=== PATIENT | male | born 1930 | race Caucasian/White ===

== ENCOUNTER 2016-09-03 14:28 | Emergency (ER) | payer MEDICARE, BC ==
[2016-01-10 12:55] VITALS: BMI 21.5
[~2016-09-03 14:28] MED LIST: CARTIA XT120 MG PO; CORDARONE200 MG PO; COREG6.25 MG PO; ECOTRIN325 MG PO; FERROUS SULFAT325 MG PO; FLOMAX0.4 MG PO; HEMOCYTE PLUS1 CAP PO; HYDROCODON-ACE1 EAC7 PO; K-DUR20 MEQ PO; LASIX20 MG PO; MOBIC7.5 MG PO; MOTRIN400 MG PO; PLAVIX75 MG PO; PRINIVIL10 MG PO; PROTONIX40 MG PO; TOPROL XL50 MG PO
[2016-09-03 15:45] LABS: BASOPHILS 0.4 % (0.0-2.0); EOSINOPHILS 1.6 % (0-7); HEMATOCRIT 37.4 % (42.0-54.0); HEMOGLOBIN 11.8 g/dL (13.5-17.5); IMMATURE GRANULOCYTES 0.2 % (0-5); LYMPHOCYTES 14.4 % (15-50); MCH 24.6 pg (26.0-34.0); MCHC 31.6 g/dL (31.0-37.0); MCV 78.1 fL (80.0-100.0); MEAN PLATELET VOLUME 9.7 fL (7.4-10.4); MONOCYTES 9.9 % (2-11); NEUTROPHILS 73.5 % (40-80); PLATELET COUNT 210 10x3/uL (130-400); RBC 4.79 10x6/uL (4.20-6.10); RDW 16.5 % (11.5-14.5); WBC 5.5 10x3/uL (4.8-10.8)
[2016-09-03 15:57] LABS: ALBUMIN 3.6 g/dL (3.4-5.0); ANION GAP 14.9 mmol/L (8-16); BILIRUBIN - TOTAL 0.43 mg/dL (0.2-1.3); CALCIUM 9.6 mg/dL (8.5-10.1); CARBON DIOXIDE 25.8 mmol/L (21.0-32.0); CREATININE - SERUM 1.3 mg/dL (0.6-1.3); POTASSIUM - SERUM 3.7 mmol/L (3.5-5.1); PROTEIN - SERUM 7.2 g/dL (6.4-8.2)
[2016-09-03 16:06] LABS: THYROID STIMULATING HORMONE 0.83 uIU/mL (0.36-3.74); TROPONIN-I 0.019 ng/mL (0.000-0.060)
== END 2016-09-03 17:42 | disposition home or self-care (01) ==
LOC: D.ER 14:28
PROVIDERS: Physician Assistant
DX: I48.91 Unspecified atrial fibrillation (principal); I25.10 Atherosclerotic heart disease of native coronary artery without angina pectoris; D64.9 Anemia, unspecified; I49.3 Ventricular premature depolarization; I45.4 Nonspecific intraventricular block

== ENCOUNTER 2017-10-11 02:31 | Observation (INO) | payer MEDICARE, BC ==
[~2017-10-11] VITALS: Ht 188 cm; Wt 85.7 kg
--- NOTE | ~2017-10-11 | HEMODYNAMI ---
PATIENT:AUSTIN KNIGHT MEDICAL RECORD: [id number] : 30 [address] [id number] ADMISSION DATE: 10/11/17 Generatedon:10/12/201710:03 Patient name: AUSTIN KNIGHT Patient #: [id number] SSN: : Date of study: 10/12/2017 Page: Of Hemodynamic Procedure Report Patient Data Patient Demographics Procedure consent was obtained First Name: AUSTIN Gender: Male Last Name: EUGENE : 1930 Middle Initial: L Age: 86 year(s) Patient #: [id number] Race: Additional ID: [id number] Contact details Address: [address] [place] [address] State: [place] City: [place] Zip code: [address] Admission Admission Data Admission Date: 10/11/2017 Admission Time: 3:32 Room #: 2115 Procedure Procedure Types Cath Procedure Diagnostic Procedure LHC LHC w/Coronaries w/Grafts Sedation Charges Moderate Sedation up to 30 minutes PCI Procedure AMI/SVG/SQUARE SHEAR OPERATOR PTCA or Stent SVG-BMS/TIP Initial Procedure Description Procedure Date Procedure Date: 10/12/2017 Procedure Start Time: 9:29 Procedure End Time: 10:01 Procedure Staff Name Function Josiah Harris MD Performing Physician Shanthi Martinez RT Monitor Jolene Yu RT Scrub Jackson Joaquin RN Nurse Procedure Data Cath Procedure Fluoroscopy Diagnostic fluoroscopy Total fluoroscopy Time: 8.1 time: 8.1 min min Diagnostic fluoroscopy Total fluoroscopy dose: dose: 1108 mGy 1108 mGy Contrast Material Contrast Material Type Amount (ml) Isovue 300 158 Entry Location Entry Primary Successful Side Size Upsize 1 Upsize Entry Closure Mesa ccessful Closure Location (Fr) (Fr) 2 (Fr) Remarks Device Remarks Femoral Right 5 Fr 6 Fr 6 Fr Exoseal artery Mid-Length Short Estimated blood loss: 10 ml Diagnostic catheters Device Type Used For End Catheter Placement MULTIPACK JL 4.0 5Fr Procedure catheter DIAGNOSTIC JL 5 5Fr Procedure catheter ([id number]) MULTIPACK 3DRC 5Fr Procedure catheter DIAGNOSTIC AR 1 MOD 5Fr Procedure catheter ([id number]) MULTIPACK Pigtail 5 Fr Ventriculography catheter Procedure Complications No complications Procedure Medications Medication Administration Route Dosage Oxygen etCO2 Nasal cannula 2 l/min Heparin Flush Bag added to field 2 bags (1000units/500ml NS) 0.9% NaCl I.V. 100 ml/hr Fentanyl I.V. 50 mcg Versed I.V. 1 mg Fentanyl I.V. 50 mcg Versed I.V. 1 mg Heparin Bolus I.V. 4000 units Integrilin (Bolus I.V. 7.9 ml 2mg/ml) Integrilin (Bolus wasted 2.1 ml 2mg/ml) Plavix P.O. 75 mg Hemodynamics Rest Heart Rate: 77 (bpm) Pressure Samples Time Site Value (mmHg) Purpose Heart Use Rate(bpm) 9:41 LV 122/10,15 Snapshot 74 9:41 AO 129/62(92) Pullback 75 9:41 LV 115/15,17 Pullback 75 Gradients Valve Time Site 1 Site 2 Mean SEP/DFP Peak To Heart Use (mmHg) (sec/min) Peak Rate (mmHg) (bpm) Aortic 9:41 LV AO 0 75 115/15,17 129/62(92) Calculations Valve P-P Mean Valve Index Valve Source Name Gradient Area Flow (cm2) Aortic 0 0 Snapshots Pre Cath Intra NCS Post Cath Vital Signs Time Heart Resp SPO2 etCO2 NIBP (mmHg) Rhythm Pain Sedation Rate (ipm) (%) (mmHg) Status Level (bpm) 9:08:07 81 16 97 0 151/78(125) NSR 0 (11) 10(A) , No pain 9:12:29 74 16 100 23.1 143/68(121) NSR 0 (11) 10(A) , No pain 9:16:43 73 19 100 0 138/84(112) NSR 0 (11) 10(A) , No pain 9:20:57 73 16 96 0 143/78(113) NSR 0 (11) 10(A) , No pain 9:25:13 69 16 98 0 137/73(102) NSR 0 (11) 9(A) , No pain 9:29:32 77 17 100 19.4 139/64(99) NSR 0 (11) 9(A) , No pain 9:33:47 73 14 90 29.1 133/73(107) NSR 0 (11) 9(A) , No pain 9:38:02 73 17 91 0 132/70(109) NSR 0 (11) 9(A) , No pain 9:42:16 76 17 94 0 125/71(95) NSR 0 (11) 9(A) , No pain 9:46:28 75 16 95 31.4 130/69(103) NSR 0 (11) 9(A) , No pain 9:50:44 75 23 100 32.1 142/65(110) NSR 0 (11) 9(A) , No pain 9:54:58 75 16 100 31.3 134/81(96) NSR 0 (11) 9(A) , No pain 9:59:11 70 18 100 0 128/74(97) NSR 0 (11) 10(A) , No pain Medications Time Medication Route Dose Verified Delivered Reason Notes Effectiveness by by 9:07:27 Oxygen etCO2 2 Josiah Paz Per physician Nasal l/min St Jose Joaquin RN cannula 9:07:38 Heparin Flush added 2 Josiah Paz used for Bag to bags St Jose Joaquin RN procedure (1000units/500ml field HARRISON NS) 9:07:48 0.9% NaCl I.V. 100 Josiah Paz Per physician ml/hr St Jose Joaquin RN, MD 9:20:10 Fentanyl I.V. 50 Josiah Paz for sedation mcg St Jose Joaquin RN, MD 9:20:16 Versed I.V. 1 mg Josiah Paz for sedation St Jose Joaquin RN, MD 9:28:42 Fentanyl I.V. 50 Josiah Paz for sedation mcg [facility] Jose Joaquin RN, MD 9:28:47 Versed I.V. 1 mg Josiah Paz for sedation St Jose Joaquin RN, MD 9:44:50 Heparin Bolus I.V. 4000 [address]iah Paz for units [facility] Jose Joaquin RN anticoagulation 9:46:24 Integrilin I.V. 7.9 Josiah Paz for (Bolus 2mg/ml) ml St Jose Joaquin RN antiplatelet MD therapy 9:46:33 Integrilin wasted 2.1 Josiah Paz for (Bolus 2mg/ml) ml St Jose Joaquin RN antiplatelet MD therapy 10:00:31 Plavix P.O. 75 mg Josiah Paz for St Jose Joaquin RN antiplatelet MD therapy Procedure Log Time Note 8:05:37 Diagnostic Cath Status : Elective 8:06:13 Time tracking: Regular hours (M-F 7:00 - 5:00) 8:06:18 Plan of Care:Hemodynamics will remain stable., Cardiac rhythm will remain stable., Comfort level will be maintained., Respiratory function will remain adequate., Patient/ family verbilizes understanding of procedure., Procedure tolerated without complication., Recovers from procedure without complications.. 8:50:12 Jackson Joaquin RN sent for patient. Start room use. 9:06:58 Vital chart was started 9:07:12 Patient received from [employer] II to [facility] 2 Alert and oriented. Tansferred to table in Supine position. 9:07:14 Warm blankets applied, and silvio hugger turned on for patient comfort. 9:07:14 Correct patient and procedure confirmed by team. 9:07:15 ECG and BP/O2 sat monitors applied to patient. 9:07:17 Signed procedure consent form obtained from patient. 9:07:20 Baseline sample Acquired. 9:07:25 Rhythm: sinus rhythm 9:07:27 Oxygen 2 l/min etCO2 Nasal cannula was administered by Jackson Joaquin RN; Per physician; 9:07:27 Full Disclosure recording started 9:07:30 H&P Date Dictated: 10/12/2017 New H&P dictated by physician.. 9:07:31 Pre-procedure instructions explained to patient. 9:07:31 Pre-op teaching completed and patient verbalized understanding. 9:07:33 Family in waiting room. 9:07:34 Patient NPO since Midnight. 9:07:36 Is the patient allergic to Iodine/contrast media? No. 9:07:37 Was the patient premedicated? No 9:07:38 Heparin Flush Bag (1000units/500ml NS) 2 bags added to field was administered by Jackson Joaquin RN; used for procedure; 9:07:44 Is patient on blood thinner?Yes 9:07:48 0.9% NaCl 100 ml/hr I.V. was administered by Jackson Joaquin RN; Per physician; 9:07:48 ACC The patient was administered the following blood thiners within the last 24 hours: ACCPlavix, Eliquis 9:07:51 Patient diabetic? No. 9:07:54 Previous problem with sedation/anesthesia? No ? 9:07:55 Snore? Yes 9:07:56 Sleep apnea? No 9:07:57 Deviated septum? No 9:07:57 Opens mouth fully? Yes 9:07:58 Sticks out tongue? Yes 9:08:00 Airway obstruction? No ? 9:08:06 Dentures? Yes in tight 9:08:10 Pre procedure: right dorsailis pedis pulse 2+ Normal; easily identifiable; not easily obliterated 9:08:13 Pre procedure: left dorsailis pedis pulse 2+ Normal; easily identifiable; not easily obliterated 9:08:15 Patient pain scale 0/10 ?. 9:08:22 IV patent on arrival in right forearm with 0.9% NaCl at O. 9:08:25 Lab results completed and on chart. 9:08:29 Right groin area was prepped with chlora-prep and draped in sterile fashion 9:08:30 Alarms reviewed by R. N. 9:08:30 Sharps counted by scrub and verified by R.N. 9:13:10 Physician paged 9:14:20 Physician arrived 9:18:01 --------ALL STOP TIME OUT------ 9:18:02 Final Timeout: patient, procedure, and site verified with staff and physician. All members of the team are in agreement. 9:18:04 Right groin site verified by team. 9:18:08 Physical assessment completed. ASA score P 2 - A patient with mild systemic disease as per Josiah Harris MD. 9:18:12 Sedation plan: IV Moderate Sedation Medication:Versed, Fentanyl 9:19:42 Zero performed for pressure channel P1 9::45 Zero performed for pressure channel P1 9:20:10 Fentanyl 50 mcg I.V. was administered by Jackson Joaquin RN; for sedation; 9::11 Zero performed for pressure channel P1 9:20:16 Versed 1 mg I.V. was administered by Jackson Joaquin RN; for sedation; 9::42 Fentanyl 50 mcg I.V. was administered by Jackson Joaquin RN; for sedation; 9:28:45 Procedure started. 9:28:47 Versed 1 mg I.V. was administered by Jackson Joaquin RN; for sedation; 9:28:53 Use device set Femoral Dx 9:28:55 ACIST Syringe (65855) opened to sterile field. 9:28:55 Bag Decanter (2002) opened to sterile field. 9:28:56 Medline Cath Pack ([id number]) opened to sterile field. 9:28:56 DIAGNOSTIC WIRE .035 260cm J wire (083821) opened to sterile field. 9:28:58 ACIST Hand Control (49136) opened to sterile field. 9:28:58 ACIST Manifold (43118) opened to sterile field. 9:28:59 DIAGNOSTIC Multipack 5Fr catheter set (WI1952) opened to sterile field. 9:28:59 Tegaderm 4 x 4 (1626W) opened to sterile field. 9:29:19 PERCUTANEOUS ENTRY 19GA needle opened to sterile field. 9:29:27 SHEATH Prelude 5Fr 0.035 (BGB-1W-69-035) opened to sterile field. 9:29:37 Local anesthetic to right femoral artery with Lidocaine 2% by Josiah Harris MD.INITIAL ACCESS ONLY 9:31:27 A 5 Fr sheath was inserted into the Right Femoral artery 9:31:52 A MULTIPACK JL 4.0 5Fr catheter was advanced over the wire and used for Procedure. 9:32:23 Cath removed unable to acess LCA. Exchanged for JL5 9:32:40 A DIAGNOSTIC JL 5 5Fr catheter ([id number]) was advanced over the wire and used for Procedure. 9:34:41 LCA angiography performed. 9:35:59 Catheter removed. 9:36:11 A MULTIPACK 3DRC 5Fr catheter was advanced over the wire and used for Procedure. 9:36:15 RCA angiography performed. 9:36:20 SVG to Circ angiography performed. 9:36:47 DEWITT to LAD angiography performed. 9:39:31 A DIAGNOSTIC AR 1 MOD 5Fr catheter ([id number]) was advanced over the wire and used for Procedure. 9:39:50 SVG to RCA angiography performed. 9:39:53 Catheter removed. 9:41:01 A MULTIPACK Pigtail 5 Fr catheter was advanced over the wire and used for Ventriculography. 9:41:34 EF : 30 % 9:42:36 Proceeding to intervention. 9:42:52 Sheath upsized to a 6 Fr Mid-Length. 9:43:22 SHEATH Prelude 6Fr 0.035 (TAH-0P-55-035) opened to sterile field. 9:43:23 WHISPER 300cm guide wire ([id number]) opened to sterile field. 9:43:24 SHEATH 6FR ARROW 45cm (CL-35525) opened to sterile field. 9:43:25 INFLATOR Merit BasixCompak (FT8422) opened to sterile field. 9:43:59 GUIDE 6FR LCB catheter (LA6LCB) opened to sterile field. 9:44:12 6 Fr LCB guide catheter was inserted over the wire 9:44:16 Whisper wire advanced. 9:44:23 Wire advanced across lesion. 9:44:50 Heparin Bolus 4000 units I.V. was administered by Jackson Joaquin RN; for anticoagulation; 9:46:24 Integrilin (Bolus 2mg/ml) 7.9 ml I.V. was administered by Jackson Joaquin RN; for antiplatelet therapy; 9:46:33 Integrilin (Bolus 2mg/ml) 2.1 ml wasted was administered by Jackson Joaquin RN; for antiplatelet therapy; 9:49:00 Inflate balloon Inflation number: 1 A EMERGE OTW 3.0 x 15 balloon ([id number]) was prepped and advanced across the Aorta Left -> 1st Ob Randa, then inflated to 12 RANCHO for 0:37 (min:sec). 9:49:48 Inflation number: 2 The EMERGE OTW 3.0 x 15 balloon ([id number]) was reinflated across the Aorta Left -> 1st Ob Randa, to 12 RANCHO for 0:35 (min:sec). 9:50:37 Balloon removed over the wire. 9:53:39 The INTEGRITY OTW 3.0 X 15 stent ([id number]) was advanced then removed because device failure 9:54:28 EXOSEAL 6Fr (EX600) opened to sterile field. 9:56:16 Place stent Inflation Number: 4 A INTEGRITY OTW 3.0 X 15 stent ([id number]) was prepped and advanced across the Aorta Left -> 1st Ob Randa. The stent was deployed at 14 RANCHO for 0:26 (min:sec). 9:57:33 Wire removed. 9:57:33 Guide catheter removed. 9:58:01 Sheath upsized to a 6 Fr Short. 9:58:18 Sheath removed intact; hemostasis achieved with Exoseal to the Right Femoral artery. 9:58:21 Procedure ended.(Physican Out) 9:58:39 Fluoroscopy time 08.10 minutes. 9:58:43 Flurop Dose total: 1108 9:58:43 Fluoroscopy dose: 1108 mGy 9:58:48 Contrast amount:Isovue 300 158ml. 9:58:51 Insertion/operative site no bleeding no hematoma. 9:58:56 Post-op/insertion site Right Femoral artery dressed using a 4 x 4 and Tegaderm. 9:58:59 Post right femoral artery:stable 9:59:04 Post-procedure physical assessment completed. ASA score P 2 - A patient with mild systemic disease as per Josiah Harris MD. 9:59:09 Post procedure rhythm: unchanged. 9:59:12 Estimated blood loss: 10 ml 9:59:13 Post procedure instruction explained to patient.Patient verbalizes understanding. 9:59:46 Procedure type changed to Cath procedure, Diagnostic procedure, LHC, LHC w/Coronaries w/Grafts, Sedation Charges, Moderate Sedation up to 30 minutes, PCI procedure, AMI/SVG/SQUARE SHEAR OPERATOR PTCA or Stent, SVG-BMS/TIP Initial 9:59:48 Procedure and supply charges have been captured, reviewed, submitted and are correct. 10:00:31 Plavix 75 mg P.O. was administered by Jackson Joaquin RN; for antiplatelet therapy; 10:01:37 Procedure Complication : No complications 10:01:41 Vital chart was stopped 10:01:43 See physician's report for complete and final results. 10:01:45 Report given to Pre/Post Procedure Room. 10:01:52 Patient transfered to Pre/Post Procedure Room with Stretcher. 10:01:54 Procedure ended. 10:01:54 Full Disclosure recording stopped 10:01:58 End room use (Document Last) Intervention Summary Intervention Notes Time ActionType Lesion and Equipment Action# Pressure Duration Attributes Used 9:49:00 Inflate Aorta Left EMERGE OTW 1 12 00:37 balloon -> 1st Ob 3.0 x 15 Randa balloon ([id number]) 9:49:48 Reinflate Aorta Left EMERGE OTW 2 12 00:35 balloon -> 1st Ob 3.0 x 15 Randa balloon ([id number]) 9:53:39 Discard Aorta Left INTEGRITY Stent -> 1st Ob OTW 3.0 X 15 Randa stent ([id number]) 9:56:16 Place stent Aorta Left INTEGRITY 4 14 00:26 -> 1st Ob OTW 3.0 X 15 Randa stent ([id number]) Device Usage Item Name Manufacture Quantity Catalog Number Hospital Part Current Minimal Lot# / Charge Number Stock Stock Serial# Code ACIST Syringe Acist 1 54729 257089 951904 483696 20 (84365) Medical Systems TruQu Bag Decanter Microtek 1 2001S 102206 56319 311588 5 () Medical Inc. Medline Cath Cardinal 1 [id number] 081576 79954 375599 5 [employer] ([id number]) DIAGNOSTIC WIRE St [place] 1 470216 246305 988854 374350 30 .035 260cm J wire (057531) ACIST Hand Acist 1 82215 904062 137414 445019 5 Control (10564) Medical Systems Inc ACIST Manifold Acist 1 17004 528533 019643 093655 5 (94693) Medical Systems Inc DIAGNOSTIC Cardinal 1 NT7648 739898 40917 953749 30 Multipack 5Fr Health catheter set (MO7587) Tegaderm 4 x 4 3M 1 1626W 681599 035611 449107 5 (1626W) PERCUTANEOUS Your[employer]core Medical 1 A57751 385440 033142 5 ENTRY 19GA needle SHEATH Prelude Merit 1 QYP-2X-90-035 767294 645869 447555 5 5Fr 0.035 Medical (VCS-7N-71-035) MULTIPACK JL Cardinal 1 326659 5 4.0 5Fr Health catheter DIAGNOSTIC JL 5 Cardinal 1 [id number] 900242 533743 272400 5 5Fr catheter Health (264714X) MULTIPACK 3DRC Cardinal 1 935029 5 5Fr catheter Health DIAGNOSTIC AR 1 Cardinal 1 [id number] 172593 636368 588704 15 MOD 5Fr Health catheter (625057C) MULTIPACK Cardinal 1 833426 5 Pigtail 5 Fr Health catheter SHEATH Prelude Merit 1 PQL-4O-49-35 241290 1820449 680258 5 6Fr 0.035 Medical (GLZ-8T-29-035) WHISPER 300cm Farr 1 [id number] 609665 995065 144408 5 guide wire Vascular ([id number]) SHEATH 6FR Teleflex 1 CL-07238 867960 909857 111757 5 ARROW 45cm (CL-09183) INFLATOR Merit Merit 1 RX3454 678150 339321 590280 15 [facility] Medical (XM6992) GUIDE 6FR LCB Medtronic 1 LA6LCB 973837 03673 821510 1 catheter (LA6LCB) EMERGE OTW 3.0 [place] 1 [id number] 651925 957392 798659 5 [id number] x 15 balloon Scientific ([id number]) INTEGRITY OTW Medtronic 2 [id number] 900747 564717 7 [id number] 3.0 X 15 stent [id number] ([id number]) EXOSEAL 6Fr Cardinal 1 EX600 367022 426072 752132 10 (EX600) Health Signature Audit [place] Stage Time Signature Unsigned Intra-Procedure 10/12/2017 Shanthi Martinez 10:03:07 AM RT(R) Signatures Monitor : Shanthi Martinez Signature : RT Date : Time : [id number] [place] [address]
--- NOTE | ~2017-10-11 | CN ---
PATIENT NAME:AUSTIN KNIGHT MEDICAL RECORD: [id number] : 30 LOCATION:D. D.2115 ADMIT DATE: 10/11/17 ACCOUNT: [id number] CONSULTING PHYSICIAN: LYNNETTE GIL MD REFERRING PHYSICIAN: GREG ROSEN MD DATE OF CONSULTATION: 10/11/2017 HISTORY OF PRESENT ILLNESS: An 86-year-old gentleman with known history of coronary artery disease, status post coronary artery bypass grafting, history of stent to the circumflex graft in the past, admitted with chest tightness, pressure, reminiscent of previous angina. Cardiac enzymes subsequently consistent with NSTEMI. We are asked to see him concerning his cardiovascular status. PAST MEDICAL HISTORY: Includes; 1. History of most recently with herniorrhaphy, status post repair. 2. Hypertension. 3. Hyperlipidemia. ALLERGIES: None known. MEDICATIONS: Include potassium 10 mg p.o. daily, Lasix 40 daily, diltiazem 120 daily, carvedilol 6.25 b.i.d., and Eliquis 2.5 b.i.d. SOCIAL HISTORY: He is a nonsmoker, nondrinker. Does attempt to exercise on a regular basis, 3 days a week. REVIEW OF SYSTEMS: The patient reports easy bruising but reports no swollen glands. The patient reports no fever, no night sweats, no significant weight gain, no significant weight loss. No significant exercise tolerance. The patient reports no dry eyes, no irritation, no vision change. Patient reports no difficulty hearing and no ear pain. Patient reports no frequent nose bleeds or nose and sinus problems. Patient reports on arm pain on exertion. No shortness of breath while lying down. No history of heart murmur. Patient reports no cough, no wheezing or coughing up blood. Patient reports no abdominal pain, no vomiting. Normal appetite. No diarrhea and not vomiting blood. No nausea and no constipation. Patient reports no incontinence. No difficulty urinating. No hematuria. No increased frequency. Patient reports no muscle aches. No weakness, no arthralgias, no back pain. No swelling of the extremities. Patient reports no abnormal mole, no jaundice, no rashes. Reports no loss of consciousness. No weakness and no numbness. No seizures, dizziness, or headaches. The patient reports no depression, no sleep disturbance, feeling safe in a relationship and no alcohol abuse. Patient reports on fatigue. Reports no runny nose or sinus pressure. No itching, no hives, and no frequent sneezing. PHYSICAL EXAMINATION: GENERAL: Pleasant gentleman, no acute distress, appears stated age. VITAL SIGNS: Blood pressure 147/73, pulse 70 and regular. HEENT: Normocephalic, atraumatic. NECK: No JVD or bruit. HEART: Regular, II/ systolic ejection murmur. LUNGS: Good air excursion. ABDOMEN: Soft, nontender. EXTREMITIES: Right lower extremity good pulses. No edema. Left prosthesis in CONSULT REPORT [id number] AUSTIN KNIGHT. NEUROLOGIC: Grossly intact. DIAGNOSTIC DATA: ECG shows nonspecific ST-T changes. IMPRESSION: Acute coronary syndrome, awm-WU-idqorkyjl myocardial infarction. We will hold Eliquis in anticipation of diagnostic angiography and load Plavix. Further recommendations based on clinical course. TRANSINT:[id number] Voice Confirmation ID: [id number] DOCUMENT ID: [id number] LYNNETTE GIL MD at 1132 CC: [id number] DICTATION DATE: 10/11/17 1051 SUPERVISOR COMPOUNDING AND FINISHING: 10/11/17 1147 ADM IN [facility] [address] [place] [address]
--- NOTE | ~2017-10-11 | OP ---
PATIENT NAME: AUSTIN KNIGHT MEDICAL RECORD: [id number] :30 LOCATION:D.M2 D.2115 ADMISSION DATE:10/11/17 SURGEON: LYNNETTE GIL MD DATE OF OPERATION: 10/12/2017 PROCEDURE: Left heart catheterization, selective coronary angiography plus PTCA stent report, right femoral artery approach. CATHETERS: A 5-Albanian sheath, 5/4 left and right Sally. Please note we did use a long sheath for intervention secondary to marked tortuosity of the iliacs. FINDINGS: Left ventriculography in 30-degree LYON view shows anterior apical, apical and inferoapical hypokinesis. Overall, LV function is reduced at 30%. CORONARY ANATOMY: LEFT MAIN: Left main is free of disease. LAD: LAD is free of disease. Fills for a short period of time and is totally occluded. CIRCUMFLEX: Circumflex system again is totally occluded at takeoff of a large marginal branch. RIGHT CORONARY ARTERY: Proximal stenosis of 90% and totally occluded at the mid portion. BYPASS GRAFTS: DEWITT to LAD is widely patent throughout its course with no evidence of post-anastomotic stenosis. Saphenous vein graft to the right, widely patent throughout its course. No evidence of post-anastomotic stenosis. Saphenous graft to the circumflex, lateral system. This shows a tight 90+ percent stenosis in its vein graft portion. PLAN: Intervention momentarily. DESCRIPTION OF PROCEDURE: Using a long 6 sheath, JR guiding catheter provided good guide catheter support followed 300 cm Whisper wire placed across the tightly occluded 90% saphenous vein graft stenosis at distal portion of vessel. Pre-deployment balloon used was a 3.0 x 12 Rogers balloon up to 10 atmospheres. Stent deployed was a 3.0 x 15 mm Integrity nondrug-eluting stent up to 14 atmospheres. Final angiography shows excellent resolution of 90+ percent stenosis, no significant residual. DAVID flow was 3 throughout the procedure. The patient had been previously loaded with Plavix. Heparin was given the lab. Sheath closed with ExoSeal device. TRANSINT:[id number] Voice Confirmation ID: [id number] DOCUMENT ID: [id number] LYNNETTE GIL MD at 1337 CC: [id number] DICTATION DATE: 10/12/17 1007 BELLOWS CHARGER ASSEMBLER: 10/12/17 1213 DIS IN 10/12/17 [facility] [address] [place] [address]
[2017-10-11 02:52] LABS: BASOPHILS 0.3 % (0-2); EOSINOPHILS 2.1 % (0-7); HEMATOCRIT 35.2 % (42.0-54.0); HEMOGLOBIN 10.8 g/dL (13.5-17.5); IMMATURE GRANULOCYTES 0.1 % (0-5); LYMPHOCYTES 14.2 % (15-50); MCH 23.8 pg (26.0-34.0); MCHC 30.7 g/dL (31.0-37.0); MCV 77.5 fL (80.0-100.0); MEAN PLATELET VOLUME 8.7 fL (7.4-10.4); MONOCYTES 7.7 % (2-11); NEUTROPHILS 75.6 % (40-80); PLATELET COUNT 201 10x3/uL (130-400); RBC 4.54 10x6/uL (4.20-6.10); RDW 16.6 % (11.5-14.5); WBC 6.8 10x3/uL (4.8-10.8)
[2017-10-11 03:45] LABS: ALBUMIN 3.1 g/dL (3.4-5.0); ALKALINE PHOSPHATASE 117 U/L (46-116); ALT (SGPT) 13 U/L (10-68); BILIRUBIN - TOTAL 0.29 mg/dL (0.2-1.3); CALC OSMOLALITY 288 mosm/kg (275-300); CALCIUM 8.9 mg/dL (8.5-10.1); CARBON DIOXIDE 26.1 mmol/L (21.0-32.0); CHLORIDE - SERUM 107 mmol/L (98-107); CREATININE - SERUM 1.4 mg/dL (0.6-1.3); GLUCOSE 148 mg/dL (74-106); POTASSIUM - SERUM 3.9 mmol/L (3.5-5.1); PROTEIN - SERUM 6.5 g/dL (6.4-8.2); SODIUM 142 mmol/L (136-145); UREA NITROGEN 21 mg/dL (7-18); eGFR NON AFRICAN AMERICAN 51 mL/min (90-120)
[2017-10-11 04:00] LABS: CHOL - HDL RATIO 5.1 ratio (2.3-4.9); CHOLESTEROL, TOTAL 174 mg/dL (0-200); CKMB 1.1 U/L (0.0-3.6); CREATINE KINASE 39 UL (21-232); HDL CHOLESTEROL 34 mg/dL (32-96); LDL CHOLESTEROL 122 mg/dL (0-100); LDL-HDL RATIO 3.6 ratio (1.5-3.5); TRIGLYCERIDE 92 mg/dL (30-200); TROPONIN-I 0.132 ng/mL (0.000-0.060)
[2017-10-11] MEDS ORDERED: ELIQUIS2.5 MG PO (04:50)
[2017-10-11 04:53] VITALS: BMI 25.1
[2017-10-11 05:22] VITALS: BP 124/62
[2017-10-11 09:04] VITALS: BP 147/73
[2017-10-11 10:05] LABS: BASOPHILS 0.3 % (0-2); EOSINOPHILS 1.4 % (0-7); HEMATOCRIT 37.1 % (42.0-54.0); HEMOGLOBIN 11.3 g/dL (13.5-17.5); IMMATURE GRANULOCYTES 0.1 % (0-5); LYMPHOCYTES 15.9 % (15-50); MCH 23.8 pg (26.0-34.0); MCHC 30.5 g/dL (31.0-37.0); MCV 78.1 fL (80.0-100.0); MEAN PLATELET VOLUME 9.3 fL (7.4-10.4); MONOCYTES 7.7 % (2-11); NEUTROPHILS 74.6 % (40-80); PLATELET COUNT 223 10x3/uL (130-400); RBC 4.75 10x6/uL (4.20-6.10); RDW 16.5 % (11.5-14.5); WBC 7.1 10x3/uL (4.8-10.8)
[2017-10-11 10:15] LABS: ANION GAP 12.3 mmol/L (8-16); CALCIUM 9.2 mg/dL (8.5-10.1); CARBON DIOXIDE 26.8 mmol/L (21.0-32.0); CREATININE - SERUM 1.2 mg/dL (0.6-1.3); POTASSIUM - SERUM 4.1 mmol/L (3.5-5.1)
[2017-10-11 11:35] VITALS: BP 135/77
[2017-10-11 18:08] LABS: BASOPHILS 0.2 % (0-2); EOSINOPHILS 1.7 % (0-7); HEMATOCRIT 39.4 % (42.0-54.0); HEMOGLOBIN 11.9 g/dL (13.5-17.5); IMMATURE GRANULOCYTES 0.1 % (0-5); LYMPHOCYTES 12.7 % (15-50); MCH 23.6 pg (26.0-34.0); MCHC 30.2 g/dL (31.0-37.0); MEAN PLATELET VOLUME 9.2 fL (7.4-10.4); MONOCYTES 7.2 % (2-11); NEUTROPHILS 78.1 % (40-80); PLATELET COUNT 236 10x3/uL (130-400); RBC 5.05 10x6/uL (4.20-6.10); RDW 16.7 % (11.5-14.5); WBC 8.8 10x3/uL (4.8-10.8)
[2017-10-11 18:27] LABS: ANION GAP 12.3 mmol/L (8-16); CALCIUM 9.4 mg/dL (8.5-10.1); CARBON DIOXIDE 26.7 mmol/L (21.0-32.0); CREATININE - SERUM 1.2 mg/dL (0.6-1.3)
[2017-10-11 20:00] VITALS: BP 145/67
[2017-10-11 23:58] VITALS: BP 107/73
[2017-10-12 04:00] VITALS: BP 142/72
[2017-10-12 08:48] VITALS: BP 141/59
[2017-10-12 12:23] VITALS: Ht 188 cm; Wt 85.7 kg
[2017-10-12] MEDS ORDERED: FERROUS SULFAT325 MG PO (13:55)
[2017-10-12] MEDS ORDERED: NITROQUICK0.4 MG SL (13:56)
[2017-10-12] MEDS ORDERED: PLAVIX75 MG PO (14:05)
== END 2017-10-12 15:54 | disposition home or self-care (01) ==
LOC: D.ER 02:31 → OBSVTIME 03:32 → D.M2 03:32
PROVIDERS: Emergency Medicine; Internal Medicine Interventional Cardiology
DX: I21.4 Non-ST elevation (NSTEMI) myocardial infarction (principal); I25.110 Atherosclerotic heart disease of native coronary artery with unstable angina pectoris; Z95.1 Presence of aortocoronary bypass graft; I10 Essential (primary) hypertension; E78.5 Hyperlipidemia, unspecified

== ENCOUNTER 2018-05-27 17:32 | Observation (INO) | payer MEDICARE, BC ==
[~2018-05-27] VITALS: Ht 188 cm; Wt 81.7 kg
--- NOTE | ~2018-05-27 | MORECARE ---
CASE MANAGEMENT DISCHARGE SUMMARY PATIENT: AUSTIN KNIGHT UNIT: [id number] ADM DATE: 05/27/18 AGE: 87 : 30 SEX: M ROOM/BED: D.2115 AUTHOR: CAYETANO BURNS PHYSICIAN: REFERRING PHYSICIAN: SANTOS SANTIAGO MD DATE OF SERVICE: 05/28/18 Discharge Plan Patient Name: AUSTIN KNIGHT Facility: [facility]:[place] : 1930 Planned Disposition: Home Anticipated Discharge Date: 05/28/18 Discharge Date: Expected LOS: 1 Initial Reviewer: [email or web address] Initial Review Date: 05/28/2018 Generated: 05/28/18 12:55 pm Patient Name: AUSTIN KNIGHT Page [phone] at 1156 All edits/amendments must be made on the electronic document DICTATION DATE: 05/28/18 1155 BEEHIVE KILN CHARCOAL BURNER: ALIYA 05/28/18 1155 RPT#: [id number] DC DATE: STATUS: ADM IN [facility] [address] [place] [address] END OF REPORT
--- NOTE | ~2018-05-27 | HEMODYNAMI ---
PATIENT:AUSTIN KNIGHT MEDICAL RECORD: [id number] : 30 LOCATION[facility] [id number] ADMISSION DATE: 05/27/18 Generatedon:05/28/20189:10 Patient name: AUSTIN KNIGHT Patient #: [id number] SSN: : Date of study: 05/28/2018 Page: Of Hemodynamic Procedure Report Patient Data Patient Demographics Procedure consent was obtained First Name: AUSTIN Gender: Male Last Name: EUGENE : 1930 Middle Initial: L Age: 87 year(s) Patient #: [id number] Race: Additional ID: [id number] Contact details Address: [address] [place] [address] State: [place] City: [place] Zip code: [address] Past Medical History Allergies: No known allergies Admission Admission Data Admission Date: 05/27/2018 Admission Time: 19:41 Room #: D2115 Lab Results Lab Result Date: 05/28/2018 Lab Result Time: 0:00 Biochemistry Name Units Result Min Max BUN mg/dl 15 --(--*-)-- 7 18 Creatinine mg/dl 1 --(--*-)-- 0.6 1.3 CBC Name Units Result Min Max Hemoglobin g/dl 14.1 --(*---)-- 13.5 17.5 Procedure Procedure Types Cath Procedure Diagnostic Procedure C [facility] w/Coronaries w/Grafts PCI Procedure Coronary Stent Coronary Stent Initial Procedure Description Procedure Date Procedure Date: 05/28/2018 Procedure Start Time: 8:49 Procedure End Time: 9:06 Procedure Staff Name Function Haja Perrin MD Performing Physician Marco Liz RT Monitor Heidi Ferreira RT Scrub Ilda Valadez RN Nurse Procedure Data Cath Procedure Fluoroscopy Diagnostic fluoroscopy Total fluoroscopy Time: 5 time: 5 min min Diagnostic fluoroscopy Total fluoroscopy dose: dose: 313.02 mGy 313.02 mGy Contrast Material Contrast Material Type Amount (ml) Isovue 300 73 Entry Location Entry Primary Successful Side Size Upsize Upsize Entry Closure Succes sful Closure Location (Fr) 1 (Fr) 2 (Fr) Remarks Device Remarks Femoral Right 5 Fr 6 Fr Exoseal artery Short Diagnostic catheters Device Type Used For End Catheter Placement MULTIPACK Pigtail 5 Fr LV Angiography catheter MULTIPACK JL 4.0 5Fr Left Coronary catheter Angiography MULTIPACK 3DRC 5Fr Right Coronary catheter Angiography DIAGNOSTIC AR MOD 5Fr SVG Angiography Catheter ([id number]) Procedure Complications No complications Procedure Medications Medication Administration Route Dosage Oxygen etCO2 Nasal cannula 2 l/min Lidocaine 2% added to field 20 Heparin Flush Bag added to field 2 bags (1000units/500ml NS) 0.9% NaCl I.V. 100 ml/hr Versed I.V. 1 mg Fentanyl I.V. 50 mcg Heparin Bolus I.V. 4000 units Versed I.V. 1 mg Fentanyl I.V. 50 mcg Plavix P.O. 75 mg Hemodynamics Rest HGB: 14.1 (g/dl) Heart Rate: 82 (bpm) Snapshots Pre Cath Intra NCS Post Cath Vital Signs Time Heart Resp SPO2 etCO2 NIBP (mmHg) Rhythm Pain Sedation Rate (ipm) (%) (mmHg) Status Level (bpm) 8:41:26 71 17 100 27.3 156/79(134) NSR 0 (11) 10(A) , No pain 8:45:48 73 16 100 29.6 141/79(117) NSR 0 (11) 10(A) , No pain 8:50:04 74 41 100 12.1 137/81(114) NSR 0 (11) 10(A) , No pain 8:55:07 74 14 100 0 136/75(112) NSR 0 (11) 9(A) , No pain 8:59:27 73 19 100 12.1 133/75(113) NSR 0 (11) 9(A) , No pain 9:03:43 73 22 100 30.3 133/76(116) NSR 0 (11) 10(A) , No pain Medications Time Medication Route Dose Verified Delivered Reason Notes Effectiveness by by 8:41:09 Oxygen etCO2 2 Haja Gonsales used for Nasal l/min Marychuy Valadez weir fisherman cannula 8:41:16 Lidocaine 2% added 20ml Haja Smyth for local to vial Marychuy Perrin MD anesthetic field 8:41:25 Heparin Flush added 2 Haja Smyth used for Bag to bags Marychuy Perrin MD procedure (1000units/500ml field NS) 8:41:34 0.9% NaCl I.V. 100 Hajamaxi Gonsales Per physician ml/hr Marychuy Valadez RN 8:48:40 Versed I.V. 1 mg Haja Avelinoie for sedation Marychuy Valadez RN 8:48:47 Fentanyl I.V. 50 Haja Buffie for sedation mcg Marychuy Valadez RN 8:53:47 Versed I.V. 1 mg Haja Buffie for sedation Marychuy Valadez RN 8:53:51 Fentanyl I.V. 50 Haja Youie for sedation mcg Marychuy Valadez RN 8:56:15 Heparin Bolus I.V. 4000 Haja Youie for verifi ed units Marychuy Valadez RN anticoagulation with dr perrin 9:04:12 Plavix P.O. 75 mg Haja Gonsales for Marychuy Valadez RN antiplatelet therapy Procedure Log Time Note 8:10:43 Signed procedure consent form obtained from patient. 8:10:44 Diagnostic Cath status Elective 8:10:46 Time tracking: Regular hours (M-F 7:00 - 5:00) 8:10:50 Plan of Care:Hemodynamics will remain stable., Cardiac rhythm will remain stable., Comfort level will be maintained., Respiratory function will remain adequate., Patient/ family verbilizes understanding of procedure., Procedure tolerated without complication., Recovers from procedure without complications.. 8:10:53 Ilda Valadez RN sent for patient. Start room use. 8:36:31 Patient received from Med II to CCL 3 Alert and oriented. Tansferred to table in Supine position. 8:36:31 Warm blankets applied, and silvio hugger turned on for patient comfort. 8:36:32 Correct patient and procedure confirmed by team. 8:36:33 ECG and BP/O2 sat monitors applied to patient. 8:40:13 Vital chart was started 8:40:17 Baseline sample Acquired. 8:40:21 Rhythm: sinus rhythm 8:40:23 Full Disclosure recording started 8:40:37 H&P Date Dictated: 05/28/2018 Within 30 days and on chart., H&P Addendum completed by physician on day of procedure. (MUST COMPLETE FOR ALL OUTPATIENTS). 8:40:38 Pre-procedure instructions explained to patient. 8:40:39 Pre-op teaching completed and patient verbalized understanding. 8:40:42 Family unavailable. 8:40:45 Patient NPO since Midnight. 8:40:52 Patient allergic to No known allergies 8:40:58 Is the patient allergic to Iodine/contrast media? No. 8:41:00 Is patient on blood thinner?Yes 8:41:04 ACC The patient was administered the following blood thiners within the last 24 hours: ACCPlavix 8:41:06 Patient diabetic? No. 8:41:08 ----Pre-sedation anethsthesia assessment.---- 8:41:09 Oxygen 2 l/min etCO2 Nasal cannula was administered by Ilda Valadez RN; used for procedure; 8:41:16 Lidocaine 2% 20ml vial added to field was administered by Haja Perrin MD; for local anesthetic; 8:41:17 Previous problem with sedation/anesthesia? No ? 8:41:19 Snore? No 8:41:20 Sleep apnea? No 8:41:23 Deviated septum? No 8:41:24 Opens mouth fully? Yes 8:41:25 Heparin Flush Bag (1000units/500ml NS) 2 bags added to field was administered by Haja Perrin MD; used for procedure; 8:41:26 Sticks out tongue? Yes 8:41:28 Airway obstruction? No ? 8:41:30 Dentures? No ? 8:41:33 Pre procedure: right dorsailis pedis pulse 2+ Normal; easily identifiable; not easily obliterated 8:41:34 0.9% NaCl 100 ml/hr I.V. was administered by Ilda Valadez RN; Per physician; 8:41:37 Patient pain scale 0/10 ?. 8:41:45 IV patent on arrival in left antecubital with 0.9% NaCl at 10ml/hr. 8:44:29 Lab Result : BUN 15 mg/dl 8:44:29 Lab Result : Creatinine 1 mg/dl 8:44:29 Lab Result : Hemoglobin 14.1 g/dl 8:46:12 Lab results completed and on chart. 8:46:16 Right groin area was prepped with chlora-prep and draped in sterile fashion 8:46:16 Alarms reviewed by R. N. 8:46:17 Sharps counted by scrub and verified by R.N. 8:46:18 Physician arrived 8:46:18 --------ALL STOP TIME OUT------ 8:46:20 Final Timeout: patient, procedure, and site verified with staff and physician. All members of the team are in agreement. 8:46:22 Right groin site verified by team. 8:46:25 Physical assessment completed. ASA score P 2 - A patient with mild systemic disease as per Haja Perrin MD. 8:46:28 Sedation plan: IV Moderate Sedation Medication:Versed, Fentanyl 8:46:31 Use device set Femoral Dx 8:46:32 ACIST Syringe (30972) opened to sterile field. 8:46:33 Bag Decanter (2002S) opened to sterile field. 8:46:34 Medline Cath Pack ([id number]) opened to sterile field. 8:46:34 DIAGNOSTIC WIRE .035 260cm J wire (197792) opened to sterile field. 8:46:36 ACIST Hand Control (62465) opened to sterile field. 8:46:36 ACIST Manifold (80587) opened to sterile field. 8:46:37 DIAGNOSTIC Multipack 5Fr catheter set (OY5746) opened to sterile field. 8:46:37 Tegaderm 4 x 4 (1626W) opened to sterile field. 8:46:39 EXOSEAL 5Fr (EX500) opened to sterile field. 8:46:40 SHEATH 5FR Belvedere Tiburon (MYS364) opened to sterile field. 8:48:40 Versed 1 mg I.V. was administered by Ilda Valadez RN; for sedation; 8:48:47 Fentanyl 50 mcg I.V. was administered by Ilda Valadez RN; for sedation; 8:49:16 Procedure started. 8:49:19 Local anesthetic to right femoral artery with Lidocaine 2% by Haja Perrin MD.INITIAL ACCESS ONLY 8:49:39 A 5 Fr sheath was inserted into the Right Femoral artery 8:50:15 A MULTIPACK Pigtail 5 Fr catheter was advanced over the wire and used for LV Angiography. 8:50:20 LV angiography performed. 8:50:21 LV gram done using LYON 8:50:28 EF : 20 % 8:50:31 Catheter exchanged over wire. 8:50:40 A MULTIPACK JL 4.0 5Fr catheter was advanced over the wire and used for Left Coronary Angiography. 8:50:43 LCA angiography performed. 8:51:05 Catheter removed. 8:51:27 A MULTIPACK 3DRC 5Fr catheter was advanced over the wire and used for Right Coronary Angiography. 8:52:51 DEWITT to LAD angiography performed. 8:53:17 A DIAGNOSTIC AR MOD 5Fr Catheter ([id number]) was advanced over the wire and used for SVG Angiography. 8:53:27 SVG to Circ angiography performed. 8:53:47 Versed 1 mg I.V. was administered by Ilda Valadez RN; for sedation; 8:53:51 Fentanyl 50 mcg I.V. was administered by Ilda Valadez RN; for sedation; 8:54:12 INFLATOR Merit BasixCompak (EZ0324) opened to sterile field. 8:54:13 CHOICE PT Extra Support 182cm wire ([id number]) opened to sterile field. 8:54:13 SHEATH 6FR Bel[place] (BXR334) opened to sterile field. 8:55:10 Catheter removed. 8:55:27 GUIDE 6FR AR 2.0 catheter ([id number]) opened to sterile field. 8:56:15 Heparin Bolus 4000 units I.V. was administered by Ilda Valadez RN; for anticoagulation; verified with dr perrin 8:56:29 Sheath upsized to a 6 Fr Short. 8:57:00 6 Fr AR 2 guide catheter was inserted over the wire 8:57:05 CPTES wire advanced. 8:58:31 Inflate balloon Inflation number: 1 A EUPHORA 2.5 x 15 Balloon ([id number]) was prepped and advanced across the Aorta Left -> Dist CX, then inflated to 17 RANCHO for 0:22 (min:sec). 8:58:40 Inflation number: 2 The EUPHORA 2.5 x 15 Balloon ([id number]) was reinflated across the Aorta Left -> Dist CX, to 17 RANCHO for 0:08 (min:sec). 8:58:45 Balloon removed over the wire. 8:59:02 Procedure type changed to Cath procedure, Diagnostic procedure, LHC, LHC w/Coronaries w/Grafts, PCI procedure, Coronary Stent, Coronary Stent Initial 9:01:33 Place stent Inflation Number: 3 A ALEK RX 3.0 x 18 stent ([id number]) was prepped and advanced across the Aorta Left -> Dist CX. The stent was deployed at 15 RANCHO for 0:10 (min:sec). 9:01:37 Stent catheter was removed intact over wire. 9:01:37 Wire removed. 9:01:41 Guide catheter removed. 9:01:50 Sheath removed intact; hemostasis achieved with Exoseal to the Right Femoral artery. 9:01:56 EXOSEAL 6Fr (EX600) opened to sterile field. 9:02:00 Procedure ended.(Physican Out) 9:02:22 Fluoroscopy time 05.00 minutes. 9:02:30 Flurop Dose total: 313.02 9:02:30 Fluoroscopy dose: 313.02 mGy 9:02:45 Contrast amount:Isovue 300 73ml. 9:02:46 Sharps counted by scrub and verified by R.N. 9:02:47 Insertion/operative site no bleeding no hematoma. 9:02:50 Post-op/insertion site Right Femoral artery dressed using a 4 x 4 and Tegaderm. 9:02:53 Post right femoral artery:stable 9:02:55 Post Procedure Pulses reassessed and unchanged 9:02:57 Post procedure: right dorsailis pedis pulse 1+ Palpable, but thready & weak; easily obliterated. 9:04:12 Plavix 75 mg P.O. was administered by Ilda Valadez RN; for antiplatelet therapy; 9:05:36 Procedure and supply charges have been captured, reviewed, submitted and are correct. 9:05:58 Procedure Complication : No complications 9:06:01 Vital chart was stopped 9:06:02 See physician's report for complete and final results. 9:06:11 Report given to PCU. 9:06:15 Patient transfered to PCU with Bed. 9:06:17 Procedure ended. 9:06:17 Full Disclosure recording stopped 9:06:25 ACC-PCI Only Patient was given prescriptions, or instructed by Haja Perrin MD to start/continue the following medications upon discharge: Plavix 9:06:26 End room use (Document Last) Intervention Summary Intervention Notes Time ActionType Lesion and Equipment Used Action# Pressure Duration Attributes 8:58:31 Inflate Aorta Left EUPHORA 2.5 x 1 17 00:22 balloon -> Dist CX 15 Balloon ([id number]) 8:58:40 Reinflate Aorta Left EUPHORA 2.5 x 2 17 00:08 balloon -> Dist CX 15 Balloon ([id number]) 9:01:33 Place stent Aorta Left ALEK RX 3.0 x 3 15 00:10 -> Dist CX 18 stent ([id number]) Device Usage Item Name Manufacture Quantity Catalog Number Hospital Part Current M inimal Lot# / Charge Number Stock Stock Serial# Code ACIST Syringe Acist 1 95695 103971 346072 349861 2 0 () Medical Systems Inc Bag Decanter Microtek 1 578034 83059 789828 5 () Medical Inc. Medline Cath Medline 1 [id number] 612880 74995 057675 5 Pack ([id number]) DIAGNOSTIC St [place] 1 208864 535504 601049 772501 3 0 WIRE .035 260cm J wire (893870) ACIST Hand Acist 1 49119 334023 661209 230682 5 Control Medical (24770) Systems Inc ACIST Manifold Acist 1 69468 908744 749453 323841 5 (61074) Medical Systems Inc DIAGNOSTIC Cardinal 1 XQ3507 794624 15002 543947 3 0 Multipack 5Fr Health catheter set (WX1618) Tegaderm 4 x 4 3M 1 1626W 297814 111951 129253 5 (1626W) EXOSEAL 5Fr Cardinal 1 EX500 045025 319201 602240 1 0 (EX500) Health SHEATH 5FR Terumo 1 ZYU972 182047 615770 836692 5 Belvedere [place] (FEZ197) MULTIPACK Cardinal 1 259106 5 Pigtail 5 Fr Health catheter MULTIPACK JL Cardinal 1 655276 5 4.0 5Fr Health catheter MULTIPACK 3DRC Cardinal 1 937845 5 5Fr catheter Health DIAGNOSTIC AR Cardinal 1 [id number] 376104 608513 541311 1 5 MOD 5Fr Health Catheter (914880X) INFLATOR Merit Merit 1 JT1318 194090 088032 717391 1 5 Airpost.io (RY3356) CHOICE PT [place] 1 [id number] 026916 464118 738238 5 Extra Support Scientific 182cm wire ([id number]) SHEATH 6FR Terumo 1 YQF130 741448 719280 311788 4 0 Belvedere [place] (IKN767) GUIDE 6FR AR Medtronic 1 QF9PQ00 479372 13304 380684 1 2.0 catheter (GZ0GV77) EUPHORA 2.5 x Medtronic 1 [id number] 305021 137797 272837 5 [id number] 15 Balloon ([id number]) ALEK RX 3.0 x Medtronic 1 [id number] 198877 5483681 532205 5 [id number] 18 stent ([id number]) EXOSEAL 6Fr Cardinal 1 EX600 576640 150783 618588 1 0 (EX600) Health Signature Audit [place] Stage Time Signature Unsigned Intra-Procedure 05/28/2018 Marco QUISPE(Tarah) 9:10:22 AM Signatures Monitor : Marco Liz RT Signature : Date : Time : [place] [id number] [place] [address]
--- NOTE | ~2018-05-27 | DS ---
PATIENT:AUSTIN KNIGHT :30 MEDICAL RECORD: [id number] DISCHARGE SUMMARY ADMISSION DATE: 05/27/18 DISCHARGE DATE: 05/28/18 DATE OF SERVICE: 05/28/2018. DIAGNOSES: 1. Unstable angina. 2. PTCA stent vein graft to left circumflex this admission. 3. Coronary artery disease. 4. Hypertension. 5. Hyperlipidemia. HOSPITAL COURSE: Mr. Knight presents with anginal symptomatology, found to have significant disease of the vein graft to the left circumflex, underwent successful PTCA stent of this territory. He was discharged home with the addition of aspirin and Plavix to his medical regimen. Follow up with [facility] within the next week for PTCA stent of the vein graft to the RCA. TRANSINT:[id number] Voice Confirmation ID: [id number] DOCUMENT ID: [id number] SANTOS SANTIAGO MD at 1108 CC: [id number] DICTATION DATE: 05/28/1809 STATISTICAL DEVELOPER: 05/29/18 0018 DIS IN 05/28/18 [place] [id number]
--- NOTE | ~2018-05-27 | HP ---
PATIENT: AUSTIN KNIGHT MEDICAL RECORD: [id number] ACCOUNT: [id number] LOCATION:[address] : 30 ADMISSION DATE: 05/27/18 PCP: GREG ROSEN MD HISTORY AND PHYSICAL EXAMINATION DIAGNOSES: 1. Unstable angina. 2. Abnormal ECG. 3. Coronary disease. 4. Previous PTCA and stent. 5. Previous coronary bypass graft surgery. 6. Hypertension. 7. Hyperlipidemia. HISTORY: Mr. Knight presents with unstable anginal symptomatology for the past few days. His EKG has significant ST depression in the lateral leads and he is having ongoing chest pain. REVIEW OF SYSTEMS: The patient reports easy bruising but reports no swollen glands. The patient reports no fever, no night sweats, no significant weight gain, no significant weight loss. No significant exercise tolerance. The patient reports no dry eyes, no irritation, no vision change. Patient reports no difficulty hearing and no ear pain. Patient reports no frequent nose bleeds or nose and sinus problems. Patient reports on arm pain on exertion. No shortness of breath while lying down. No history of heart murmur. Patient reports no cough, no wheezing or coughing up blood. Patient reports no abdominal pain, no vomiting. Normal appetite. No diarrhea and not vomiting blood. No nausea and no constipation. Patient reports no incontinence. No difficulty urinating. No hematuria. No increased frequency. Patient reports no muscle aches. No weakness, no arthralgias, no back pain. No swelling of the extremities. Patient reports no abnormal mole, no jaundice, no rashes. Reports no loss of consciousness. No weakness and no numbness. No seizures, dizziness, or headaches. The patient reports no depression, no sleep disturbance, feeling safe in a relationship and no alcohol abuse. Patient reports on fatigue. Reports no runny nose or sinus pressure. No itching, no hives, and no frequent sneezing. PHYSICAL EXAMINATION: GENERAL APPEARANCE: Well-nourished, well-developed, appears stated age. Level of distress, comfortable. PSYCHIATRIC: Mental status, alert, normal affect. Orientation, oriented to time, place and person. EYES: Lids and conjunctiva, noninjected. No discharge, no pallor. ENT: Lips, teeth, gums, normal dentition. Oropharynx, no cyanosis, no pallor. NECK: Carotid arteries, bilateral normal upstroke, no bruits, no thrills. JUGULAR VEINS: No jugular venous pressure or distention. CERVICAL LYMPH NODES: Nontender, nonenlarged. THYROID: Not enlarged. Nontender. No nodules. LUNGS: Respiratory effort, unlabored. CHEST: Normal curvature. No thoracic deformity. No chest wall tenderness. Percussion, resonant. Auscultation, clear. No wheezes, no rales, no rhonchi. CARDIOVASCULAR: Precordial exam, nondisplaced. No heaves or pericardial thrills. Rate and rhythm, regular. Heart sounds, normal S1, normal S2. No S3, no gallop, no rub. Systolic murmur, not heard. Diastolic murmur, not heard. EXTREMITIES: No cyanosis, no edema. Peripheral pulses, full and equal in all HISTORY AND PHYSICAL [id number] EUGENE,AUSTIN L extremities, except as noted. No bruits appreciated. ABDOMEN: Soft, nondistended. Normal aorta. No bruit. Nontender. No masses. Liver, nontender, no hepatomegaly. Spleen, nontender, no splenomegaly. MUSCULOSKELETAL: No joint tenderness. No joint swelling. No erythema. NEUROLOGICAL: Normal gait, normal strength, normal tone. SKIN: Warm and dry. OVERALL IMPRESSION: Unstable angina with abnormal ECG. We will hold his Eliquis, reload him with Plavix, and proceed with coronary angiography in the a.m. Further care depends upon findings of the angiography. 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 [address] [place] [address]
--- NOTE | ~2018-05-27 | OP ---
PATIENT NAME: AUSTIN KNIGHT MEDICAL RECORD: [id number] :30 LOCATION:D.M2 D.2115 ADMISSION DATE:05/27/18 SURGEON: SANTOS SANTIAGO MD DATE OF OPERATION: 05/28/2018 PROCEDURES: 1. PTCA stent vein graft to left circumflex. 2. Left heart catheterization. 3. Selective coronary angiography. 4. Left ventriculogram. 5. Vein graft angiography. 6. DEWITT angiography. INDICATION: Angina and coronary artery disease. PROCEDURE IN DETAIL: After informed consent was obtained and after a detailed description of risks, benefits as well as alternative therapies, the patient elected to proceed with angiogram and angioplasty. The right femoral area was prepped and draped in normal sterile fashion. Right femoral artery was cannulated via modified Seldinger technique with placement of 6-Paragu[place] sheath. All catheters exchanged through this sheath. FINDINGS: Left ventriculogram was performed in standard 30-degree LYON view reveals global hypokinesis throughout all segments. Overall ejection fraction estimated 20%. SELECTIVE CORONARY ANGIOGRAPHY: 1. Left main is with no significant angiographic disease. 2. Left anterior descending is totally occluded. 3. DEWITT to the LAD is widely patent. Distal LAD is mildly diffusely diseased, but widely patent. 4. Left circumflex to obtuse marginal is totally occluded. 5. Vein graft to the obtuse marginal is patent; however, there is 99% stenosis that is in-stent restenosis in the distal shaft. 6. The right coronary artery is totally occluded. 7. Vein graft to the right coronary artery is patent, but there is an 80% stenosis in the mid shaft. PTCA STENT OF THE VEIN GRAFT TO THE CIRCUMFLEX: The stent used was a 3.0 x 18 mm Tariq. Result was 0% residual stenosis. OVERALL IMPRESSION: Successful percutaneous transluminal coronary angioplasty stent of the vein graft to left circumflex going from 99% initial stenosis to 0% residual. PLAN: PTCA stent of the vein graft to the RCA in the near future. 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
[~2018-05-27 17:32] MED LIST changes: +ELIQUIS2.5 MG PO; +NITROQUICK0.4 MG SL
[2018-05-27 18:56] LABS: BASOPHILS 0.3 % (0-2); EOSINOPHILS 1.2 % (0-7); HEMATOCRIT 42.3 % (42.0-54.0); HEMOGLOBIN 14.1 g/dL (13.5-17.5); IMMATURE GRANULOCYTES 0.1 % (0-5); LYMPHOCYTES 12.1 % (15-50); MCH 29.3 pg (26.0-34.0); MCHC 33.3 g/dL (31.0-37.0); MCV 87.8 fL (80.0-100.0); MEAN PLATELET VOLUME 9.1 fL (7.4-10.4); MONOCYTES 7.1 % (2-11); NEUTROPHILS 79.2 % (40-80); PLATELET COUNT 195 10x3/uL (130-400); RBC 4.82 10x6/uL (4.20-6.10); RDW 14.2 % (11.5-14.5); WBC 6.9 10x3/uL (4.8-10.8)
[2018-05-27 19:09] LABS: ALBUMIN 3.5 g/dL (3.4-5.0); ALKALINE PHOSPHATASE 110 U/L (46-116); ALT (SGPT) 17 U/L (10-68); BILIRUBIN - TOTAL 0.57 mg/dL (0.2-1.3); CALC OSMOLALITY 284 mosm/kg (275-300); CALCIUM 9.5 mg/dL (8.5-10.1); CARBON DIOXIDE 30.5 mmol/L (21.0-32.0); CHLORIDE - SERUM 105 mmol/L (98-107); GLUCOSE 122 mg/dL (74-106); POTASSIUM - SERUM 4.2 mmol/L (3.5-5.1); PROTEIN - SERUM 7.3 g/dL (6.4-8.2); SODIUM 142 mmol/L (136-145); UREA NITROGEN 15 mg/dL (7-18); eGFR NON AFRICAN AMERICAN 75 mL/min (90-120)
[2018-05-27 19:27] LABS: CKMB 2.5 U/L (0.0-3.6); CREATINE KINASE 49 UL (21-232); MAGNESIUM - SERUM 2.1 mg/dL (1.8-2.4)
[2018-05-27 19:32] LABS: TROPONIN-I 0.203 ng/mL (0.000-0.060)
[2018-05-27 19:47] LABS: APTT 30.7 SECONDS (22.8-39.4); INR 1.22 (0.85-1.17); PROTIME 14.9 SECONDS (11.6-15.0)
[2018-05-28 00:33] VITALS: BP 128/74
[2018-05-28 04:48] VITALS: Ht 188 cm; Wt 81.7 kg
[2018-05-28 05:13] VITALS: BP 141/81
[2018-05-28 08:50] VITALS: BP 145/87
[2018-05-28] MEDS ORDERED: PLAVIX75 MG PO (11:41)
[2018-05-28] MEDS ORDERED: ASPIRIN81 MG PO (11:41)
[2018-05-28 14:42] VITALS: BP 114/54
== END 2018-05-28 14:30 | disposition home or self-care (01) ==
LOC: D.ER 17:32 → OBSVTIME 19:41 → D.EDHOLD 19:41 → D.M2 20:59
PROVIDERS: Emergency Medicine
DX: I25.110 Atherosclerotic heart disease of native coronary artery with unstable angina pectoris (principal); T82.855A Stenosis of coronary artery stent, initial encounter; Y83.8 Other surgical procedures as the cause of abnormal reaction of the patient, or of later complication, without mention of misadventure at the time of the procedure; E78.5 Hyperlipidemia, unspecified; I10 Essential (primary) hypertension
CPT/HCPCS: 93459; C9604

== ENCOUNTER 2018-06-01 08:40 | Outpatient (CLI) | payer MEDICARE, BC ==
[~2018-06-01] VITALS: Ht 188 cm; Wt 84.1 kg
--- NOTE | ~2018-06-01 | HEMODYNAMI ---
PATIENT:AUSTIN KNIGHT MEDICAL RECORD: [id number] : 30 LOCATION:[facility] ADMISSION DATE: 06/01/18 Generatedon:06/01/201812:44 Patient name: AUSTIN KNIGHT Patient #: [id number] SSN: : Date of study: 06/01/2018 Page: Of Hemodynamic Procedure Report Patient Data Patient Demographics Procedure consent was obtained First Name: AUSTIN Gender: Male Last Name: EUGENE : 1930 [facility] Initial: L Age: 87 year(s) Patient #: [id number] Race: Additional ID: [id number] Contact details [address]: [address] [place] [address] State: [place] City: [place] Zip code: [address] Past Medical History Allergies: No known allergies Admission Admission Data Admission Date: 06/01/2018 Admission Time: 8:40 Lab Results Lab Result Date: 06/01/2018 Lab Result Time: 0:00 Biochemistry Name Units Result Min Max BUN mg/dl 13 --(--*-)-- 7 18 Creatinine mg/dl 1 --(--*-)-- 0.6 1.3 CBC Name Units Result Min Max Hemoglobin g/dl 13.8 --(*---)-- 13.5 17.5 Procedure Procedure Types Cath Procedure PCI Procedure AMI/SVG/SALES DEVELOPMENT SPECIALIST PTCA or Stent SVG-BMS/TIP Initial Procedure Description Procedure Date Procedure Date: 06/01/2018 Procedure Start Time: 12:25 Procedure End Time: 12:38 Procedure Staff Name Function Haja Perrin MD Performing Physician Heidi Ferreira RT Monitor Rashaun Alonso RT Scrub Rufino Martinez RN Nurse Procedure Data Cath Procedure Fluoroscopy Diagnostic fluoroscopy Total fluoroscopy Time: 2.8 time: 2.8 min min Diagnostic fluoroscopy Total fluoroscopy dose: 309 dose: 309 mGy mGy Contrast Material Contrast Material Type Amount (ml) Isovue 300 34 Entry Location Entry Primary Successful Side Size Upsize Upsize Entry Closure Succes sful Closure Location (Fr) 1 (Fr) 2 (Fr) Remarks Device Remarks Femoral Right 6 Fr 6 Fr Exoseal artery Short Long Estimated blood loss: 10 ml Procedure Complications No complications Procedure Medications Medication Administration Route Dosage 0.9% NaCl I.V. 100 ml/hr Oxygen etCO2 Nasal cannula 2 l/min Lidocaine 2% added to field 20 Heparin Flush Bag added to field 2 bags (1000units/500ml NS) Versed I.V. 1 mg Fentanyl I.V. 50 mcg Heparin Bolus I.V. 4000 units Versed I.V. 1 mg Fentanyl I.V. 50 mcg Hemodynamics Rest HGB: 13.8 (g/dl) Heart Rate: 72 (bpm) Snapshots Pre Cath Intra NCS Post Cath Vital Signs Time Heart Resp SPO2 etCO2 NIBP (mmHg) Rhythm Pain Sedation Rate (ipm) (%) (mmHg) Status Level (bpm) 12:06:48 80 16 100 0 132/60(98) NSR 0 (11) 10(A) , No pain 12:10:54 88 15 100 17.3 135/91(115) NSR 0 (11) 10(A) , No pain 12:14:54 80 16 100 0 132/89(110) NSR 0 (11) 10(A) , No pain 12:18:57 80 15 100 22.6 131/91(114) NSR 0 (11) 10(A) , No pain 12:23:11 70 15 100 18.9 130/62(108) NSR 0 (11) 10(A) , No pain 12:28:29 68 16 100 27.2 127/69(105) NSR 0 (11) 9(A) , No pain 12:32:43 55 16 100 30.2 123/59(106) NSR 0 (11) 9(A) , No pain 12:36:51 76 17 100 24.2 137/72(115) NSR 0 (11) 10(A) , No pain Medications Time Medication Route Dose Verified Delivered Reason Notes Effectiveness by by 12:04:48 0.9% NaCl I.V. 100 Rufino Rufino Per physician ml/hr Michelle Martinez RN RN 12:04:56 Oxygen etCO2 2 Rufino Rufino Per physician Nasal l/min Lorigan Lorigan cannula RN RN 12:05:06 Lidocaine 2% added 20ml Rufino Rufino for local to vial Lorigan Lorigan anesthetic field RN RN 12:05:23 Heparin Flush added 2 Rufino Rufino used for Bag to bags Lorvladislav Martinez procedure (1000units/500ml field RN RN NS) 12:24:44 Versed I.V. 1 mg Rufino Rufino for sedation Lorvladislav Martinez RN RN 12:25:02 Fentanyl I.V. 50 Rufino Rufino for sedation mcg Michelle Martinez RN RN 12:26:17 Heparin Bolus I.V. 4000 Rufino Rufino for units Lorigan Lorvladislav anticoagulation RN RN 12:26:24 Versed I.V. 1 mg Rufino Rufino for sedation Michelle Martinez RN RN 12:26:29 Fentanyl I.V. 50 Rufino Rufino for sedation mcg Michelle Martinez RN alligator trapper Log Time Note 11:50:08 Rashaun Alonso RT(R) sent for patient. Start room use. 11:50:09 Time tracking: Regular hours (M-F 7:00 - 5:00) 11:50:13 Plan of Care:Hemodynamics will remain stable., Cardiac rhythm will remain stable., Comfort level will be maintained., Respiratory function will remain adequate., Patient/ family verbilizes understanding of procedure., Procedure tolerated without complication., Recovers from procedure without complications.. 11:50:15 Signed procedure consent form obtained from patient. 11:50:16 Diagnostic Cath status Elective 11:50:47 Patient allergic to No known allergies 11:51:46 Lab Result : BUN 13 mg/dl 11:51:46 Lab Result : Creatinine 1 mg/dl 11:51:46 Lab Result : Hemoglobin 13.8 g/dl 11:53:35 Patient received from Pre/Post Procedure Room to CCL 2 Alert and oriented. Tansferred to table in Supine position. 11:53:36 Warm blankets applied, and silvio hugger turned on for patient comfort. 11:53:37 Correct patient and procedure confirmed by team. 11:53:37 ECG and BP/O2 sat monitors applied to patient. 11:56:00 Pre-procedure instructions explained to patient. 11:56:04 Pre-op teaching completed and patient verbalized understanding. 11:56:21 Family unavailable. 11:56:24 Patient NPO since Midnight. 11:56:32 Is the patient allergic to Iodine/contrast media? No. 11:56:53 Is patient on blood thinner?Yes 11:57:03 ACC The patient was administered the following blood thiners within the last 24 hours: ACCPlavix 11:57:30 Dentures? Yes in tight 11:57:34 Snore? No 11:57:36 Sleep apnea? No 11:57:39 Deviated septum? No 11:57:40 Opens mouth fully? Yes 11:57:43 Sticks out tongue? Yes 11:57:47 Airway obstruction? No ? 11:57:55 Patient diabetic? No. 11:58:03 ----Pre-sedation anethsthesia assessment.---- 11:58:10 Previous problem with sedation/anesthesia? No ? 11:58:17 Vital chart was started 11:59:35 Baseline sample Acquired. 11:59:38 Baseline sample Acquired. 11:59:56 Rhythm: sinus rhythm 12:00:54 Pre procedure: right dorsailis pedis pulse 2+ Normal; easily identifiable; not easily obliterated 12:00:56 Patient pain scale 0/10 ?. 12:01:08 IV patent on arrival in left hand with 0.9% NaCl at [facility]. 12:01:10 Lab results completed and on chart. 12:01:12 Right groin area was prepped with chlora-prep and draped in sterile fashion 12:01:13 Alarms reviewed by R. N. 12:01:13 Sharps counted by scrub and verified by R.N. 12:01:20 Use device set CATH PACK 12:01:21 ACIST Syringe (21551) opened to sterile field. 12:01:22 ACIST Hand Control (72528) opened to sterile field. 12:01:22 ACIST Manifold (74316) opened to sterile field. 12:01:23 Medline Cath Pack ([id number]) opened to sterile field. 12:01:23 Bag Decanter (2002S) opened to sterile field. 12:01:23 DIAGNOSTIC WIRE .035 260cm J wire (610277) opened to sterile field. 12:03:44 SHEATH 6FR [place] (GUS414) opened to sterile field. 12:03:44 CHOICE PT Extra Support 182cm wire ([id number]) opened to sterile field. 12:03:44 INFLATOR Merit Ivan (OV1232) opened to sterile field. 12:04:48 0.9% NaCl 100 ml/hr I.V. was administered by Rufino Martinez RN; Per physician; 12:04:56 Oxygen 2 l/min etCO2 Nasal cannula was administered by Rufino Martinez RN; Per physician; 12:05:06 Lidocaine 2% 20ml vial added to field was administered by Rufino Martinez RN; for local anesthetic; 12::23 Heparin Flush Bag (1000units/500ml NS) 2 bags added to field was administered by Rufino Martinez RN; used for procedure; 12::09 Zero performed for pressure channel P1 12:: Zero performed for pressure channel P1 12:: Zero performed for pressure channel P1 12:24:00 --------ALL STOP TIME OUT------ 12:24: Final Timeout: patient, procedure, and site verified with staff and physician. All members of the team are in agreement. 12:24:04 Right groin site verified by team. 12:24: Physical assessment completed. ASA score P 2 - A patient with mild systemic disease as per Haja Perrin MD. 12:24:20 Sedation plan: IV Moderate Sedation Medication:Versed, Fentanyl ::44 Versed 1 mg I.V. was administered by Rufino Martinez RN; for sedation; 12:25:02 Fentanyl 50 mcg I.V. was administered by Rufino Martinez RN; for sedation; 12:25:24 Procedure started. 12:: Full Disclosure recording started 12::28 Local anesthetic to right femoral artery with Lidocaine 2% by Haja Perrin MD.INITIAL ACCESS ONLY 12:26:06 A 6 Fr Short sheath was inserted into the Right Femoral artery 12::17 Heparin Bolus 4000 units I.V. was administered by Rufino Martinez RN; for anticoagulation; 12:: GUIDE 6FR AR 2.0 SH catheter ([id number]) opened to sterile field. 12::24 Versed 1 mg I.V. was administered by Rufino Martinez RN; for sedation; 12::29 Fentanyl 50 mcg I.V. was administered by Rufino Lorigan RN; for sedation; 12:26:35 6 Fr AR 2 SH guide catheter was inserted over the wire 12:27:08 Guide catheter removed. 12:27:52 SHEATH 6FR ARROW 45cm (CL-78338) opened to sterile field. 12:28:08 Sheath upsized to a 6 Fr Long. 12:29:05 GUIDE 6FR AR 2.0 SH catheter ([id number]) opened to sterile field. 12:29:19 6 Fr AR 2 SH guide catheter was inserted over the wire 12:31:55 CHOICE ES 182 wire advanced. 12:31:56 Wire advanced across lesion. 12:33:04 Place stent Inflation Number: 1 A ALEK RX 3.5 x 26 stent ([id number]) was prepped and advanced across the Aorta Right -> Mid RCA. The stent was deployed at 15 RANCHO for 0:10 (min:sec). 12:33:24 Stent catheter was removed intact over wire. 12:33:25 Wire removed. 12:33:25 Guide catheter removed. 12:34:10 LONG SHEATH EXCHANGED WITH SHORT SHEATH 12:34:18 EXOSEAL 6Fr (EX600) opened to sterile field. 12:34:31 Sheath removed intact; hemostasis achieved with Exoseal to the Right Femoral artery. 12:34:37 Procedure ended.(Physican Out) 12:36:27 Fluoroscopy time 02.80 minutes. 12:36:30 Flurop Dose total: 309 12:36:30 Fluoroscopy dose: 309 mGy 12:36:34 Contrast amount:Isovue 300 34ml. 12:36:38 Post-op/insertion site Right Femoral artery dressed using a 4 x 4 and Tegaderm. 12:36:40 Post-procedure physical assessment completed. ASA score P 2 - A patient with mild systemic disease as per Haja Perrin MD. 12:36:44 Post procedure rhythm: sinus rhythm 12:36:46 Estimated blood loss: 10 ml 12:36:47 Post procedure instruction explained to patient.Patient verbalizes understanding. 12:36:48 Patient needs reinforcement of post procedure teaching. 12:38:05 Procedure and supply charges have been captured, reviewed, submitted and are correct. 12:38:07 Procedure Complication : No complications 12:38:09 Vital chart was stopped 12:38:10 See physician's report for complete and final results. 12:38:13 Report given to Pre/Post Procedure Room. 12:38:15 Patient transfered to Pre/Post Procedure Room with Bed. 12:38:17 Procedure ended. 12:38:17 Full Disclosure recording stopped 12:38:20 End room use (Document Last) Intervention Summary Intervention Notes Time ActionType Lesion and Equipment Used Action# Pressure Duration Attributes 12:33:04 Place stent Aorta Right ALEK RX 3.5 x 1 15 00:10 -> Mid RCA 26 stent ([id number]) Device Usage Item Name Manufacture Quantity Catalog Number Hospital Part Current M inimal Lot# / Charge Number Stock Stock Serial# Code ACIST Syringe Acist 1 08515 723801 305584 863684 2 0 (38770) Medical Systems Inc ACIST Hand Acist 1 75573 863710 229604 889191 5 Control Medical (23591) Systems Inc ACIST Manifold Acist 1 79598 961416 222855 312966 5 (52796) Medical Systems Inc Medline Cath Medline 1 [id number] 776415 69952 188099 5 Pack ([id number]) Bag Decanter Microtek 1 2001S 834103 45627 122135 5 () Medical Inc. DIAGNOSTIC St [place] 1 272779 565483 352366 492460 3 0 WIRE .035 260cm J wire (854829) SHEATH 6FR Terumo 1 PCL269 266988 164712 474977 4 0 [place] (BXH730) CHOICE PT [place] 1 [id number] 497628 876694 919337 5 Extra Support Scientific 182cm wire ([id number]) INFLATOR Merit Merit 1 BG4907 934331 156073 424575 1 5 Tutellus Medical (QT7583) GUIDE 6FR AR Medtronic 2 [id number] 802613 60473 075590 1 2.0 SH catheter ([id number]) SHEATH 6FR Teleflex 1 CL-91777 575326 947186 899889 5 ARROW 45cm (CL-34498) ALEK RX 3.5 x Medtronic 1 [id number] 819869 9826684 242420 5 [id number] 26 stent ([id number]) EXOSEAL 6Fr Cardinal 1 EX600 878905 414072 370863 1 0 (EX600) Health Signature Audit [place] Stage Time Signature Unsigned Intra-Procedure 06/01/2018 Heidi Ferreira 12:44:28 PM RT(R) Signatures Monitor : Heidi Ferreira Signature : RT Date : Time : [address] [place] [address]
--- NOTE | ~2018-06-01 | OP ---
PATIENT NAME: AUSTIN KNIGHT MEDICAL RECORD: [id number] :30 LOCATION:D.CAT ADMISSION DATE: SURGEON: SANTOS SANTIAGO MD DATE OF OPERATION: 06/01/2018 PROCEDURES: 1. PTCA stent vein graft to RCA. 2. Selective coronary and vein graft angiography. INDICATION: Angina and coronary artery disease. PROCEDURE IN DETAIL: After informed consent was obtained and after a detailed description of the risks, benefits as well as alternative therapies, the patient elected to proceed with angiogram and angioplasty. The right femoral area was prepped and draped in normal sterile fashion. Right femoral artery was cannulated via modified Seldinger technique with placement of 6-Citizen Of [place] sheath. All catheters exchanged through this sheath. FINDINGS: Vein graft to the right coronary is patent with 70% to 80% stenosis in the mid vessel. This was addressed with a 3.5 x 26 mm Tariq stent. Result was 0% residual stenosis. OVERALL IMPRESSION: Successful PTCA stent of the vein graft to the RCA going from 70% to 80% initial stenosis to 0% residual. TRANSINT:[id number] Voice Confirmation ID: [id number] DOCUMENT ID: [id number] SANTOS SANTIAGO MD at 1228 CC: [id number] DICTATION DATE: 06/01/18 1237 FOOD HANDLER: 06/01/18 1410 DEP CLI 06/01/18 [facility] [address] [place] [address]
--- NOTE | ~2018-06-01 | HP ---
PATIENT: AUSTIN KNIGHT MEDICAL RECORD: [id number] ACCOUNT: [id number] LOCATION:[facility] : 30 ADMISSION DATE: 06/01/18 PCP: GREG ROSEN MD HISTORY AND PHYSICAL EXAMINATION DIAGNOSES: 1. Angina. 2. Coronary artery disease. 3. Recent PTCA stent vein graft to circumflex with concomitant disease vein graft to RCA. 4. Hypertension. 5. Hyperlipidemia. HISTORY OF PRESENT ILLNESS: Mr. Knight presents with anginal symptomatology as a significant stenosis of the vein graft to the RCA. He is now brought back for transcatheter revascularization of this territory. PHYSICAL EXAMINATION: GENERAL APPEARANCE: Well-nourished, well-developed, appears stated age. Level of distress, comfortable. PSYCHIATRIC: Mental status, alert, normal affect. Orientation, oriented to time, place and person. EYES: Lids and conjunctiva, noninjected. No discharge, no pallor. ENT: Lips, teeth, gums, normal dentition. Oropharynx, no cyanosis, no pallor. NECK: Carotid arteries, bilateral normal upstroke, no bruits, no thrills. JUGULAR VEINS: No jugular venous pressure or distention. CERVICAL LYMPH NODES: Nontender, nonenlarged. THYROID: Not enlarged. Nontender. No nodules. LUNGS: Respiratory effort, unlabored. CHEST: Normal curvature. No thoracic deformity. No chest wall tenderness. Percussion, resonant. Auscultation, clear. No wheezes, no rales, no rhonchi. CARDIOVASCULAR: Precordial exam, nondisplaced. No heaves or pericardial thrills. Rate and rhythm, regular. Heart sounds, normal S1, normal S2. No S3, no gallop, no rub. Systolic murmur, not heard. Diastolic murmur, not heard. EXTREMITIES: No cyanosis, no edema. Peripheral pulses, full and equal in all extremities, except as noted. No bruits appreciated. ABDOMEN: Soft, nondistended. Normal aorta. No bruit. Nontender. No masses. Liver, nontender, no hepatomegaly. Spleen, nontender, no splenomegaly. MUSCULOSKELETAL: No joint tenderness. No joint swelling. No erythema. NEUROLOGICAL: Normal gait, normal strength, normal tone. SKIN: Warm and dry. REVIEW OF SYSTEMS: The patient reports easy bruising but reports no swollen glands. The patient reports no fever, no night sweats, no significant weight gain, no significant weight loss. No significant exercise tolerance. The patient reports no dry eyes, no irritation, no vision change. Patient reports no difficulty hearing and no ear pain. Patient reports no frequent nose bleeds or nose and sinus problems. Patient reports on arm pain on exertion. No shortness of breath while lying down. No history of heart murmur. Patient reports no cough, no wheezing or coughing up blood. Patient reports no abdominal pain, no vomiting. Normal appetite. No diarrhea and not vomiting blood. No nausea and no constipation. Patient reports no incontinence. No difficulty urinating. No hematuria. No increased frequency. Patient reports no muscle aches. No weakness, no arthralgias, no back pain. No swelling of the extremities. Patient reports no abnormal mole, no jaundice, no rashes. Reports HISTORY AND PHYSICAL [id number] AUSTIN KNIGHT no loss of consciousness. No weakness and no numbness. No seizures, dizziness, or headaches. The patient reports no depression, no sleep disturbance, feeling safe in a relationship and no alcohol abuse. Patient reports on fatigue. Reports no runny nose or sinus pressure. No itching, no hives, and no frequent sneezing. OVERALL IMPRESSION: Anginal symptomatology. We will proceed with PTCA stent of the vein graft to the RCA. TRANSINT:[id number] Voice Confirmation ID: [id number] DOCUMENT ID: [id number] SANTOS SANTIAGO MD at 1228 CC: [id number] DICTATION DATE: 06/01/18912 EXCAVATOR OPERATOR: 06/01/18 0927 DEP CLI 06/01/[address] [address]
[~2018-06-01 08:40] MED LIST changes: +ASPIRIN81 MG PO
[2018-06-01] MEDS ORDERED: ELIQUIS2.5 MG PO (10:06)
[2018-06-01 10:23] VITALS: BP 146/74; Ht 188 cm; Wt 84.1 kg
[2018-06-01 10:28] LABS: BASOPHILS 0.3 % (0-2); HEMATOCRIT 41.1 % (42.0-54.0); HEMOGLOBIN 13.8 g/dL (13.5-17.5); IMMATURE GRANULOCYTES 0.2 % (0-5); LYMPHOCYTES 11.1 % (15-50); MCH 29.5 pg (26.0-34.0); MCHC 33.6 g/dL (31.0-37.0); MCV 87.8 fL (80.0-100.0); MEAN PLATELET VOLUME 9.8 fL (7.4-10.4); MONOCYTES 7.6 % (2-11); NEUTROPHILS 78.8 % (40-80); PLATELET COUNT 188 10x3/uL (130-400); RBC 4.68 10x6/uL (4.20-6.10); RDW 14.6 % (11.5-14.5); WBC 6.4 10x3/uL (4.8-10.8)
[2018-06-01 10:35] LABS: CALC OSMOLALITY 283 mosm/kg (275-300); CALCIUM 9.4 mg/dL (8.5-10.1); CARBON DIOXIDE 26.5 mmol/L (21.0-32.0); CHLORIDE - SERUM 106 mmol/L (98-107); GLUCOSE 124 mg/dL (74-106); POTASSIUM - SERUM 4.5 mmol/L (3.5-5.1); SODIUM 142 mmol/L (136-145); UREA NITROGEN 13 mg/dL (7-18); eGFR NON AFRICAN AMERICAN 75 mL/min (90-120)
== END 2018-06-01 17:15 ==
LOC: D.CATH 08:40
PROVIDERS: Internal Medicine Interventional Cardiology
DX: I25.119 Atherosclerotic heart disease of native coronary artery with unspecified angina pectoris (principal); I25.719 Atherosclerosis of autologous vein coronary artery bypass graft(s) with unspecified angina pectoris; I10 Essential (primary) hypertension; E78.5 Hyperlipidemia, unspecified; Z01.812 Encounter for preprocedural laboratory examination